=== PATIENT | female | born 1950 | race Caucasian/White ===

== ENCOUNTER 2020-09-30 06:30 | Emergency (ER) | payer MEDICARE ==
[~2020-09-30] VITALS: Ht 172.7 cm; Wt 84.0 kg
--- NOTE | 2020-09-30 07:13 | PHYS DOC ---
Adult General Chief Complaint Chief Complaint: WEAKNESS/GENERALIZED HPI HPI Patient is a 70F with a past medical history of dyspepsia and hypertension on presenting emergency department complaining of generalized weakness. Patient states that she went to sleep at approximately 1 AM and then woke up at 3:00. He did not reevaluate.. Bilateral lower extremity weakness and having difficulty ambulating to the bathroom. Patient states that she also consulted. Patient states that she went back to sleep and woke up at approximately 6 AM and notes that she is still feeling weak. Now states that the weakness appears to be generalized and notes that she is having difficulty writing or understanding her signature. Patient states she thinks her right leg is slightly worse than the left but does essentially complain of weakness and tingling sensation in bilateral feet. Denies any back pain, nausea, vomiting, dizziness, lightheadedness, fever, chills, chest pain or shortness of breath. Review of Systems Review of Systems Constitutional: Denies fever or chills [] Eyes: Denies change in visual acuity, redness, or eye pain [] HENT: Denies nasal congestion or sore throat [] Respiratory: Denies cough or shortness of breath [] Cardiovascular: No additional information not addressed in HPI [] GI: Denies abdominal pain, nausea, vomiting, bloody stools or diarrhea [] : Denies dysuria or hematuria [] Musculoskeletal: Denies back pain or joint pain [] Integument: Denies rash or skin lesions [] Neurologic: Denies headache, focal weakness or sensory changes [] Endocrine: Denies polyuria or polydipsia [] All other systems were reviewed and found to be within normal limits, except as documented in this note. Allergies Allergies Allergies Coded Allergies Type Severity Reaction Last Updated Verified cortisone Allergy Unknown 09/30/20 Yes methylprednisolone Allergy Unknown 09/30/20 Yes Physical Exam Physical Exam Constitutional: Well developed, well nourished, no acute distress, non-toxic appearance. [] HENT: Normocephalic, atraumatic, bilateral external ears normal, oropharynx moist, no oral exudates, nose normal. [] Eyes: PERRLA, EOMI, conjunctiva normal, no discharge. [] Neck: Normal range of motion, no tenderness, supple, no stridor. [] Cardiovascular:Heart rate regular rhythm, no murmur [] Lungs & Thorax: Bilateral breath sounds clear to auscultation [] Abdomen: Bowel sounds normal, soft, no tenderness, no masses, no pulsatile masses. [] Skin: Warm, dry, no erythema, no rash. [] Back: No tenderness, no CVA tenderness. [] Extremities: No tenderness, no cyanosis, no clubbing, ROM intact, no edema. [] Neurologic: Alert and oriented X 3, normal motor function, normal sensory function, no focal deficits noted. [] Psychologic: Affect normal, judgement normal, mood normal. [] EKG EKG [] Radiology/Procedures Radiology/Procedures [] Heart Score C/O Chest Pain: No Risk Factors: Risk Factors: DM, Current or recent (<one month) smoker, HTN, HLP, family history of CAD, obesity. Risk Scores: Risk Factors: DM, Current or recent (<one month) smoker, HTN, HLP, family history of CAD, obesity. Course & Med Decision Making Course & Med Decision Making Pertinent Labs and Imaging studies reviewed. (See chart for details) 70F presenting the emergency department with appears to be generalized weakness. Patient has nonspecific symptoms and does initially complain of lower extremity weakness but I do not appreciate any significant or specific neurologic deficits on exam. There is no dysarthria, dysgraphia or specific weakness or hyperreflexia. At this time I suspect this is secondary to dehydration or other underlying metabolic abnormality. Patient is also outside of the window for stroke alert. At this time will obtain labs obtain a CT scan of the head and reevaluate. 0900 - Labs reviewed and unremarkable other than a mildly elevated hemoglobin which could be suggestive of acute dehydration. Patient states that she feels much better after getting a liter of normal saline is ambulating around the emergency department without difficulty. Still no neurologic deficits. At this time there is no clear evidence of acute stroke or other significant underlying etiology. I discussed options with patient and she is planning to follow-up with her primary care physician. Alison Disclaimer Alison Disclaimer This electronic medical record was generated, in whole or in part, using a voice recognition dictation system. Departure Departure: Impression: Primary Impression: Dehydration Disposition: 01 DC HOME SELF CARE/HOMELESS Condition: GOOD Referrals: EULA CASTANEDA MD Patient Instructions: Dehydration, Adult Additional Instructions: EMERGENCY DEPARTMENT GENERAL DISCHARGE INSTRUCTIONS Thank you for coming to [facility] Emergency Department (ED) today and trusting us with you care. We trust that you had a positive experience in our Emergency Department. If you wish to speak to the department management, you may call the Director at [phone]. YOUR FOLLOW UP INSTRUCTIONS ARE FOLLOWS: 1. Do you have a private Doctor? If you do not have a private doctor, please ask for a resource list of physicians or clinics that may be able to assist you with follow up care. 2. The Emergency Physicain has interpreted your x-rays. The X-Ray specialist will also review them. If there is a change in the findings, you will be notified in 48 hours when at all possible. 3. A lab test or culture has been done, your results will be reviewed and you will be notified if you need a change in treatment. ADDITIONAL INSTRUCTIONS AND INFORMATION: 1. Your care today has been supervised by a physician who is specially trained in emergency care. Many problems require more than one evaluation for a complete diagnosis and treatment. We recommend that you schedule your follow up appointment as recommended to ensure complete treatment of you illness or injury. If you are unable to obtain follow up care and continue to have a problem, or if your condition worsens, we recommend that you return to the ED. 2. We are not able to safely determine your condition over the phone nor are we able to give sound medical advice over the phone. For these safety reasons, if you call for medical advice we will ask you to come to the ED for further evaluation. 3. If you have any questions regarding these discharge instructions please call the ED at [phone]. SAFETY INFORMATION: In the interest of safety, wellness, and injury prevention; we encourage you to wear your sealbelt, if you smoke; quite smoking, and we encourage family to use a protective helmet for bicycling and other sporting events that present an increased risk for head injury. IF YOUR SYMPTOMS WORSEN OR NEW SYMPTOMS DEVELOP, OR YOU HAVE CONCERNS ABOUT YOUR CONDITION; OR IF YOUR CONDITION WORSENS WHILE YOU ARE WAITING FOR YOUR FOLLOW UP APPOINTMENT; EITHER CONTACT YOUR PRIMARY CARE DOCTOR, THE PHYSICIAN WHOSE NAME AND NUMBER YOU WERE GIVEN, OR RETURN TO THE ED IMMEDIATELY. SIENA MORALES MD Sep 30, 2020 07:13
[2020-09-30 07:27] LABS: BASO # 0.1 x10^3/uL (0.0-0.2); BASO % 1 % (0-3); EOS # 0.2 x10^3/uL (0.0-0.7); EOS % 3 % (0-3); HEMOGLOBIN 15.9 g/dL (12.0-15.5); LYMPH # 2.6 x10^3/uL (1.0-4.8); LYMPH % 32 % (24-48); MEAN CORPUSCULAR HEMOGLOBIN 29 pg (25-35); MEAN CORPUSCULAR HGB CONC 34 g/dL (31-37); MEAN CORPUSCULAR VOLUME 86 fL (79-100); MONO # 0.5 x10^3/uL (0.0-1.1); MONO % 6 % (0-9); NEUT # 4.8 x10^3uL (1.8-7.7); NEUT % 59 % (31-73); PLATELET COUNT 237 x10^3/uL (140-400); RED BLOOD COUNT 5.47 x10^6/uL (3.50-5.40); RED CELL DISTRIBUTION WIDTH 14.6 % (11.5-14.5); WHITE BLOOD COUNT 8.2 x10^3/uL (4.0-11.0)
--- NOTE | 2020-09-30 07:28 | RAD ---
XR CHEST 1V INDICATION: weakness . COMPARISON STUDY: None. FINDINGS: Lungs: Normal lung volume. No pulmonary mass or consolidation. The tracheobronchial tree and hilar st ructures are normal. Pleura: No pleural effusion or pneumothorax. Heart and Mediastinum: The cardiomediastinal silhouette is normal. The great vessels of the thorax ar e normal. IMPRESSION: No acute cardiopulmonary process. Electronically signed by: Dawson Wall MD (09/30/2020 7:26 AM) [id number]
--- NOTE | 2020-09-30 07:38 | RAD ---
CT HEAD/BRAIN WO Date: 09/30/2020 7:10 AM Clinical Indication: OVERALL WEAKNESS Comparison: None. Technique: 5 mm axial tomographic images were obtained of the head without contrast. These were view ed on brain and bone windows. One or more of the following dose reduction techniques were utilized: A utomated exposure control (AEC), Adjustment of mA and/or kV according to patient size, Use of iterati ve reconstruction technique such as ASiR, CT scan done according to ALARA and image gently/image cam ly Findings: The brain parenchyma is normal in attenuation. No intra- or extra-axial mass or fluid collection. No acute hemorrhage. The ventricles are normal in size, shape, and morphology. The alcala-white matter robert ction is normal. The subarachnoid cisterns are patent. The visualized paranasal sinuses are normal. The visualized portions of the orbits and globes are no rmal. The mastoid air cells are clear. The oral hygienist topogram shows no lytic lesion or fracture. Impression: No acute intracranial process. Electronically signed by: Dawson Wall MD (09/30/2020 7:36 AM) [id number]
[2020-09-30 07:39] LABS: CALCIUM 9.4 mg/dL (8.5-10.1); CREATININE 0.8 mg/dL (0.6-1.0); GFR 71.1; POTASSIUM 4.5 mmol/L (3.5-5.1)
[2020-09-30] MEDS ORDERED: IV NORMAL SALINE 1,000ML 1,000 ML IV ONE ×2 (07:45→09:00)
[2020-09-30 07:52] LABS: BILIRUBIN,URINE NEG (NEG); CLARITY,URINE HAZY; COLOR,URINE YELLOW; GLUCOSE,URINE NEG (NEG); NITRITE,URINE NEG (NEG); UROBILINOGEN,URINE 0.2 mg/dL (0.2 mg/dL)
[2020-09-30 07:53] LABS: BACTERIA,URINE MOD /HPF (0-FEW); MAGNESIUM 2.1 mg/dL (1.8-2.4); SQUAMOUS EPITHELIAL CELL,UR MANY /LPF
[2020-09-30 10:20] VITALS: BP 178/87
--- NOTE | 2020-09-30 10:38 | EKG ---
[facility] ED [facility] [place] [id number] Test Date: 2020-09-30 Test Time: 07:19:00 Pat Name: LISA GARCES Department: Room: Gender: F Tennis Coach: MARY : 1950 Requested By: SIENA MORALES Order Number: [id number] Reading MD: Measurements Intervals [place] Rate: 98 P: 70 HI: 144 QRS: -36 QRSD: 86 T: 54 QT: 348 QTc: 446 Interpretive Statements SINUS RHYTHM ABNORMAL LEFT AXIS DEVIATION R-S TRANSITION ZONE IN V LEADS DISPLACED TO THE LEFT LEFT ANTERIOR FASCICULAR BLOCK ABNORMAL ECG RI6.02 No previous ECG available for comparison
== END 2020-09-30 10:36 | disposition home or self-care (01) ==
LOC: ER 06:30
DX: E86.0 Dehydration (principal); Z88.8 Allergy status to other drugs, medicaments and biological substances
CPT/HCPCS: 36415; 70450; 71045; 80048; 81001; 82550; 83735; 83880; 84484; 85025; 85610; 85730; 87086; 93005; 96360; 96361; 99285; J7030